=== PATIENT | female | born 1955 | race Caucasian/White ===

== ENCOUNTER 2023-03-31 13:55 | Emergency (ER) | payer MEDICARE, SELFPAY ==
[2023-03-31 14:01] VITALS: BP 143/73
--- NOTE | 2023-03-31 21:45 | ED.MUSCINJ ---
HPI-Injury
General
Chief Complaint: Fall
Source: patient
Exam Limitations: none
Time Seen by Provider: 03/31/23 14:25
Nursing documentation reviewed up to this point in time: agreed with
Travel History
Have you had any contact with someone who has COVID-19?: No
Do you have any symptoms of coronavirus? Fever > 100 degrees, chills, cough, shortness of breath, sore throat, loss of taste or smell, muscle aches, or headache?: No
History of Present Illness-Injury
Is this injury a work related problem?: No
Is pt an associate of [facility]?: No
Initial Injury comments:
Patient to ED after slip and fall incident last weekend. Fell into street. Hit face on pavement. No LOC. Bit her tongue and displaced right upper central incisor. Complains of pain to her right arm, elbow, wrist, thigh. Brought to ED by spouse
for eval.
Past History
Past History
ED Past Medical History: COPD and GERD
ED Past Surgical History: Other
Social History
Tobacco: Former smoker
Personal:
Living: with family
Employment: Retired
Review of Systems
Review of Systems
Allergies reviewed?: Yes
All Other Systems: ROS reviewed and negative except as documented in HPI and ROS
Constitutional: Reports no symptoms
EENT: Reports other (Displaced right upper central incisor, bite to right side of tongue, bruising to chin)
Respiratory: Reports no symptoms
Cardiac: Reports no symptoms
ABD/GI: Reports no symptoms
Musculoskeletal: Reports joint pain (pain to right shoulder, right elbow, right wrist, right thigh)
Skin: Reports no symptoms
Neurological: Reports no symptoms
Psychiatric: Reports no symptoms
Musculoskeletal Injury Exam
Musculoskeletal Injury Exam
Right Upper Arm:
Pain with Movement?: Moderate
Tender to palpation?: Moderate
External deformity and angulation?: None
Joint effusion?: None
Contusion?: Moderate
Hematoma-local bleeding into tissue?: None
Strain- Sprain- Tear (Connective tissue injury)?: Moderate
Crepitus with movement?: No
Joint instability?: No
Malalignment/deformity?: No
Range of motion: Full
Distal skin color and temperature: normal-warm & good color
Capillary Refill: normal
Normal distal neurovascular exam?: Yes
Peripheral Pulses: radial (right): 3+
Right Elbow:
Pain with Movement?: Moderate
Tender to palpation?: Moderate
Soft tissue swelling?: None
External deformity and angulation?: None
Joint effusion?: None
Contusion?: Moderate
Strain- Sprain- Tear (Connective tissue injury)?: Moderate
Crepitus with movement?: No
Joint instability?: No
Malalignment/deformity?: No
Range of motion: Full
Distal skin color and temperature: normal-warm & good color
Capillary Refill: normal
Normal distal neurovascular exam?: Yes
Right Wrist:
Pain with Movement?: Moderate
Tender to palpation?: Moderate
Soft tissue swelling?: None
External deformity and angulation?: None
Joint effusion?: None
Contusion?: None
Hematoma-local bleeding into tissue?: None
Strain- Sprain- Tear (Connective tissue injury)?: Moderate
Crepitus with movement?: No
Joint instability?: No
Malalignment/deformity?: No
Range of motion: Full
Distal skin color and temperature: normal-warm & good color
Capillary Refill: normal
Normal distal neurovascular exam?: Yes
Right Thigh:
Pain with Movement?: Moderate
Tender to palpation?: Moderate
Soft tissue swelling?: None
External deformity and angulation?: None
Joint effusion?: None
Contusion?: Moderate
Hematoma-local bleeding into tissue?: None
Strain- Sprain- Tear (Connective tissue injury)?: None
Crepitus with movement?: No
Joint instability?: No
Malalignment/deformity?: No
Range of motion: Full
Distal skin color and temperature: normal-warm & good color
Capillary Refill: normal
Normal distal neurovascular exam?: Yes
Phy Exam
General Physical Exam
General Presentation: well appearing and no apparent distress
General age: appears stated age
General Skin: warm and dry
General Habitus: normal
General Mental: alert
Neurological Exam
Neurological Exam: alert, oriented x3 and CN II-XII intact
Musculoskeletal Exam
Musculoskeletal Exam: full ROM and neuro vasc intact
Skin Exam
Skin Exam: normal color and warm/dry
Psychiatric Exam
Psychiatric Exam: normal mood/affect
Injury Course
Orders/Labs/Results
Orders:
Orders
03/31/23 15:32
CR Elbow - Right Min 3 Views Urgent
Reason For Exam: fall
CR Femur - Right Min 2 Vw Urgent
Reason For Exam: fall
CR Humerus - Right Min 2 View* Urgent
Reason For Exam: fall
CR Wrist - Right Min 3 Views Urgent
Reason For Exam: fall
03/31/23 16:26
Long Arm Right-Treatment ONCE
03/31/23 16:27
Sling Right-Treatment ONCE
*Radiology
Radiology exam reviewed: radiology read reviewed
*Pulse Oximetry
Patient hypoxic: no
*Critical Care Note
Total Time (30-74mins, 75-104mins- exclusive of procedures): Not Applicable
ED Attending Note
-
Portions of this chart may have been created with voice recognition software.� Occasional wrong word or��sound alike� substitutions may have occurred due to the inherent limitations of voice recognition software.
Discharge Plan
Departure
Patient Disposition: Home (Routine Discharge)
Date of Disposition: 03/31/23
Time of Disposition: 16:15
Patient with high blood pressure during this ER visit?: No
Condition: Good
Covid-19: Not Applicable
Discharge Problem:
Contusion of multiple sites, Head injury
Instructions: Head Injury in Adults (DC), Contusion (DC), Preventing falls in adults, Mouth and dental injuries in adults, Elbow Fracture, Adult ED
Prescriptions:
No Action
trazodone 100 MG tablet
100 mg PO HS
metoprolol tartrate 25 MG tablet
25 mg PO DAILYPRN PRN (Reason: palpitations)
celecoxib 200 MG capsule
200 mg PO DAILY
chlorpromazine 10 MG tablet
10 mg PO DAILYPRN PRN (Reason: hiccups)
ascorbic acid (vitamin C) [Vitamin C] 500 MG tablet
1,000 mg PO DAILY
acyclovir 1 APPLIC ointment
1 applic topical DAILY
Patient Comments:
07/28/18: Patient applies to lips and nose daily
cholecalciferol (vitamin D3) 1,000 UNITS tablet
1,000 units PO DAILY
levocetirizine [Xyzal] 5 MG tablet
5 mg PO DAILY
sennosides [senna] 1 TABLET tablet
1 tab PO HS 0RF
acetaminophen 325 MG tablet
650 mg PO Q4HPRN PRN (Reason: pain-1 st) 0RF
famotidine 20 MG tablet
20 mg PO BID 0RF
docusate sodium 100 MG capsule
100 mg PO BID 0RF
oxycodone 5 MG tablet
5 mg PO Q6HPRN PRN (Reason: pain not controlled on other m) Qty: 40 0RF
Referrals:
Joaquín Ponce DO [Family Provider] -
Daljit Baltazar MD [Active] - Call in 1-3 days for appt
Activity Restrictions/Additional Instructions:
Follow up with your dental provider for further treatment of the injury to your tooth.
Interventions
Interventions:
*Risk Screen - Suicide Last Done: 03/31/23 17:27
*General Assessment Last Done: 03/31/23 17:25
*Neglect/Abuse Screening Last Done: 03/31/23 17:27
*Nursing Disposition Last Done: 03/31/23 17:27
ED-Musculoskeletal Assessment Last Done: 03/31/23 17:22
ED- Neurological Assessment Last Done: 03/31/23 17:22
ED-Skin Assessment Last Done: 03/31/23 17:22
Discharge Date and Time
Discharge Date/Time: 03/31/23 17:28
== END 2023-03-31 17:28 | disposition home or self-care (01) ==
LOC: EMR 13:55
PROVIDERS: EMERGENCY PHYSICIAN Emergency Medicine; FAMILY PHYSICIAN Family Medicine
DX: S09.90XA Unspecified injury of head, initial encounter (principal); S00.83XA Contusion of other part of head, initial encounter; W19.XXXA Unspecified fall, initial encounter
CPT/HCPCS: 99283; 73060; 73080; 73110; 73552

== ENCOUNTER 2023-11-07 14:09 | Emergency (ER) | payer MEDICARE, SELFPAY ==
[2023-11-07] VITALS (7 sets, daily range): BP systolic 140–153; BP diastolic 71–82; BMI 20.9
[2023-11-07] MEDS: ZOFRAN 4 MG IV ×2 (15:04→20:15)
[2023-11-07] MEDS: DILAUDID 1 MG IV ×4 (15:05→21:47)
--- NOTE | 2023-11-07 17:34 | ED.GENMED ---
History of Present Illness
General
Chief Complaint: Fall
Source: patient and spouse
Time Seen by Provider: 11/07/23 14:16
History of Present Illness
History of Present Illness:
68-year-old female who presents after she fell off the bed and struck her left flank on a chair. Patient states she waited 2 days because she was trying to manage at home but is unable to get out of bed to the bathroom. The patient fell to bed
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 She does have a history of COPD. The patient also states she is on chronic pain medication at home but is not helping. She denies shortness of breath but states that just hurts when she takes a deep breath. She
reports pain throughout the left flank. No hematuria noted
Past History
Past History
ED Past Medical History: COPD, GERD and Other (Esophageal stricture, peptic ulcer disease, left carotid artery aneurysm, migraines, cataracts)
ED Past Surgical History: Other
Social History
Tobacco: Former smoker
Personal:
Living: with family
Employment: Retired
Phy Exam
Physical Exam
Physical Exam:
CONSTITUTIONAL Patient alert and oriented to person, place and time. Well-appearing. Vital signs reviewed.
HEAD atraumatic, normocephalic.
EYES eyelids normal to inspection, Extraocular muscles intact, Conjunctiva normal, Sclera normal.
NECK normal range of motion, Trachea midline, no jugular venous distention.
RESPIRATORY CHEST No respiratory distress noted, Bilateral breath sounds clear.
CARDIOVASCULAR regular rate and rhythm, Heart sounds normal.
ABDOMEN abdomen nontender, Bowel sounds normal. No distention.
BACK normal inspection, no obvious deformities, no midline tenderness. Moderate to severe left posterior/flank tenderness in the regions of ribs 6 through 9 laterally
UPPER EXTREMITY range of motion normal, Motor strength normal, no cyanosis, no edema. skin tear to R elbow
LOWER EXTREMITY range of motion normal, Motor strength normal, no cyanosis, no edema.
NEURO Speech normal, No focal motor deficits, [place] coma scale 15, Memory normal, Cranial Nerves intact to screening exam.
SKIN skin warm, dry, and normal in color.
PSYCHIATRIC patient oriented to person place and time, Normal affect.
Course
Orders/Labs/Results
Orders:
Orders
11/07/23 14:59
HYDROmorphone [Dilaudid] 1 mg IV NOW STA
Ondansetron Injectable [Zofran] 4 mg IV NOW STA
Ribs, Left 3 View W/PA Chest CR [CR Ribs-left 3 Vw W/pa Chest] Urgent
Comment:
Reason For Exam: fall
11/07/23 16:26
HYDROmorphone [Dilaudid] 1 mg IV NOW STA
11/07/23 16:28
CT Chest W/o Iv Contrast Urgent
Comment:
Reason For Exam: severe L flank pain, s/p fall
11/07/23 17:45
Complete Blood Count/With Diff Urgent
Comprehensive Metabolic Panel Urgent
11/07/23 18:54
Acetaminophen [Tylenol] 1,000 mg PO NOW STA
HYDROmorphone [Dilaudid] 1 mg IV NOW STA
Abnormal Lab Results
11/07/23
17:45
Absolute Neuts (auto) 7.3 H 10^3/uL
(1.4-6.5)
Lymphocytes % 17.4 L %
(20.5-51.1)
11/07/23 17:45
11/07/23 17:45
Vital Signs
Initial and Last Documented VS:
Initial Vital Signs
Temp Pulse Resp Pulse Ox
98 F 65 18 94
11/07/23 14:14 11/07/23 14:14 11/07/23 14:14 11/07/23 14:14
Last Documented Vital Signs
Temp Pulse Resp BP Pulse Ox
98 F 80 17 151/71 89
11/07/23 14:14 11/07/23 17:30 11/07/23 17:30 11/07/23 17:00 11/07/23 17:15
MDM/Problems Addressed
MDM/Problems Addressed:
Rib injury
*Radiology
Radiology exam reviewed: preliminary read by ED provider (Rib fractures noted on chest CT) and radiology read reviewed
*Pulse Oximetry
Patient hypoxic: no
*Critical Care Note
Total Time (30-74mins, 75-104mins- exclusive of procedures): 45 minutes
Data Reviewed
Source: patient
Patient Management
Escalation/DeEscalation of care consider admission/obs:
Pain is somewhat improved. Not hypoxic. Will attempt to ambulate to see if she is able to be discharged. Await CT reading
Update Note
Update Note:
Patient unable to get out of bed without severe pain. Given the fact that she has multiple rib fractures and is essentially immobile, transfer to trauma center. Will discuss with [facility] trauma
ED Attending Note
-
Portions of this chart may have been created with voice recognition software.� Occasional wrong word or��sound alike� substitutions may have occurred due to the inherent limitations of voice recognition software.
Discharge Plan
Departure
Patient Disposition: Acute Care Hospital
Date of Disposition: 11/07/23
Time of Disposition: 18:45
Discharge Problem:
Fracture of ribs, multiple
Prescriptions:
No Action
trazodone 100 MG tablet
100 mg PO HS
metoprolol tartrate 25 MG tablet
25 mg PO DAILYPRN PRN (Reason: palpitations)
celecoxib 200 MG capsule
200 mg PO DAILY
chlorpromazine 10 MG tablet
10 mg PO DAILYPRN PRN (Reason: hiccups)
ascorbic acid (vitamin C) [Vitamin C] 500 MG tablet
1,000 mg PO DAILY
acyclovir 1 APPLIC ointment
1 applic topical DAILY
Patient Comments:
07/28/18: Patient applies to lips and nose daily
cholecalciferol (vitamin D3) 1,000 UNITS tablet
1,000 units PO DAILY
levocetirizine [Xyzal] 5 MG tablet
5 mg PO DAILY
sennosides [senna] 1 TABLET tablet
1 tab PO HS 0RF
acetaminophen 325 MG tablet
650 mg PO Q4HPRN PRN (Reason: pain-1 st) 0RF
famotidine 20 MG tablet
20 mg PO BID 0RF
docusate sodium 100 MG capsule
100 mg PO BID 0RF
oxycodone 5 MG tablet
5 mg PO Q6HPRN PRN (Reason: pain not controlled on other m) Qty: 40 0RF
Referrals:
Joaquín Ponce DO [Family Provider] -
Hospital Transfer
Other hospital: [facility]
I certify that the patient requires transfer: Yes
Discussed case with accepting physician: trauma
Reason for transfer: specialties available
Interventions
Interventions:
*Risk Screen - Suicide Last Done: 11/07/23 14:22
*General Assessment Last Done: 11/07/23 14:23
*Neglect/Abuse Screening Last Done: 11/07/23 14:23
ED- Fall Risk Assessment Last Done: 11/07/23 14:27
*ED COVID-19 Vaccine History Last Done: 11/07/23 14:27
ED-Musculoskeletal Assessment Last Done: 11/07/23 16:18
ED- Neurological Assessment Last Done: 11/07/23 14:27
ED-Skin Assessment Last Done: 11/07/23 16:18
Discharge Date and Time
Print Language: TAJIK
[2023-11-07 17:53] LABS: % Basophils 0.7 % (0-2); % Eosinophils 0.6 % (0-6); % Immature Granulocytes 0.3 % (0-0.5); % Lymphocytes 17.4 % (20.5-51.1); Absolute Basophils 0.1 10^3/uL (0-0.2); Absolute Eosinophils 0.1 10^3/uL (0-0.7); Absolute Lymphocytes 1.7 10^3/uL (1.2-3.4); Absolute Monocytes 0.6 10^3/uL (0.1-0.6); Absolute Neutrophils 7.3 10^3/uL (1.4-6.5); Hemoglobin 14.5 g/dL (12.0-16.0); Mean Corp Hgb Conc. 34.5 g/dL (33.0-37.0); Mean Corpuscular Hgb 30.3 pg (27.0-31.0); Mean Corpuscular Volume 87.7 fL (81.0-99.0); Mean Platelet Volume 9.4 fL (7.4-10.4); Nucleated Red Blood Cells % 0 %; Platelet Count 252 10^3/uL (130-400); Red Blood Cell Count 4.79 10^6/uL (4.20-5.40); Red Cell Dist. Width 13.2 % (11.5-14.5); White Blood Cell Count 9.7 10^3/uL (4.8-10.8)
[2023-11-07 18:07] LABS: ALT (SGPT) 18 U/L (0-35); AST (SGOT) 28 U/L (14-36); Albumin 4.2 g/dl (3.5-5.0); Alkaline Phosphatase 96 U/L (38-126); Blood Urea Nitrogen 13 mg/dl (7-17); Calcium 9.3 mg/dl (8.4-10.2); Carbon Dioxide 27 mmol/L (22-30); Chloride 101 mmol/L (98-107); Estimated Creatinine Clearance 63 ml/min; Glucose 78 mg/dl (70-99); Potassium 4.1 mmol/L (3.5-5.1); Sodium 139 mmol/L (135-145); Total Bilirubin 0.9 mg/dl (0.2-1.3); eGFR > 60.00
[2023-11-07] MEDS: TYLENOL 1000 MG PO (19:13)
== END 2023-11-07 22:27 | disposition short-term general hospital (02) ==
LOC: EMR 14:09
PROVIDERS: EMERGENCY PHYSICIAN Emergency Medicine; FAMILY PHYSICIAN Family Medicine
DX: S22.42XA Multiple fractures of ribs, left side, initial encounter for closed fracture (principal); W06.XXXA Fall from bed, initial encounter; Z87.891 Personal history of nicotine dependence
CPT/HCPCS: 99291; 96374; 96375; 96376 ×2; 71101; 71250; 80053; 85025

== ENCOUNTER 2024-12-07 06:07 | Emergency (ER) | payer MEDICARE, SELFPAY ==
[2024-12-07 06:11] VITALS: BP 109/84
[2024-12-07 06:26] VITALS: BMI 17.3
--- NOTE | 2024-12-07 06:33 | ED.GENMED ---
History of Present Illness
General
Chief Complaint: Fall
Time Seen by Provider: 12/07/24 06:11
History of Present Illness
History of Present Illness:
69 yo female presents to the Emergency Department for evaluation of headache and R shoulder pain after falling out of bed this AM. Per , she had a witnessed LOC lasting seconds to minutes. She reports mild h/a, nausea, and fatigue currently.
Takes baby asa, no OAC. No neck/back pain, extremity paresthesias. Able to ambulate after the injury
Past History
Past History
ED Past Medical History: COPD, GERD and Other (Esophageal stricture, peptic ulcer disease, left carotid artery aneurysm, migraines, cataracts)
ED Past Surgical History: Other
Social History
Tobacco: Former smoker
Personal:
Living: with family
Employment: Retired
Review of Systems
Review of Systems
Allergies reviewed?: Yes
All Other Systems: ROS reviewed and negative except as documented in HPI and ROS
Phy Exam
Physical Exam
Physical Exam:
GEN: Well appearing, NAD, WDWN
HEENT: Minor laceration to the right lateral eyebrow with ecchymosis, no palpable deformity, oral mucosa moist, no scleral icterus, no nasal congestion
Cardiac: Regular rate
Lung: No respiratory distress, no tachypnea
MSK: No gross deformity or injuries, no midline cervical, thoracic, lumbar spine tenderness. Right shoulder appears atraumatic with no ecchymosis or deformity, range of motion normal, grossly nontender
Skin: Good color, no pallor or jaundice, no rashes
Neuro: AO x3; CN II-XII grossly intact. BUE strength 5/5 in all gimenez, sensation intact and symmetric. BLE strength 5/5 in all gimenez, sensation intact and symmetric
Psych: Calm, cooperative
Course
Orders/Labs/Results
Orders:
Orders
12/07/24 06:32
CT Head W/o Iv Contrast Urgent
Comment:
Reason For Exam: fall
CR Shoulder - Right Min 2 View Urgent
Comment:
Reason For Exam: fall
Vital Signs
Initial and Last Documented VS:
Initial Vital Signs
Temp Pulse Resp BP Pulse Ox
97.5 F 83 18 109/84 95
12/07/24 06:11 12/07/24 06:11 12/07/24 06:11 12/07/24 06:11 12/07/24 06:11
Last Documented Vital Signs
Temp Pulse Resp BP Pulse Ox
97.5 F 77 14 109/84 94
12/07/24 06:11 12/07/24 06:35 12/07/24 06:35 12/07/24 06:11 12/07/24 06:35
MDM/Problems Addressed
MDM/Problems Addressed:
No evidence of traumatic injury on CT of the head or x-ray of the right shoulder. Suitable for discharge home
*Pulse Oximetry
SaO2: 95
Oxygen Mode of Delivery: Room air
Patient hypoxic: no
*Critical Care Note
Total Time (30-74mins, 75-104mins- exclusive of procedures): Not Applicable
ED Attending Note
-
Portions of this chart may have been created with voice recognition software.� Occasional wrong word or��sound alike� substitutions may have occurred due to the inherent limitations of voice recognition software.
Discharge Plan
Departure
Patient Disposition: Home (Routine Discharge)
Date of Disposition: 12/07/24
Time of Disposition: 07:37
Patient with high blood pressure during this ER visit?: No
Discharge Problem:
Fall, Laceration of eyebrow, Closed head injury
Prescriptions:
No Action
trazodone 100 MG tablet
100 mg PO HS
metoprolol tartrate 25 MG tablet
25 mg PO DAILYPRN PRN (Reason: palpitations)
celecoxib 200 MG capsule
200 mg PO DAILY
chlorpromazine 10 MG tablet
10 mg PO DAILYPRN PRN (Reason: hiccups)
ascorbic acid (vitamin C) [Vitamin C] 500 MG tablet
1,000 mg PO DAILY
acyclovir 1 APPLIC ointment
1 applic topical DAILY
Patient Comments:
07/28/18: Patient applies to lips and nose daily
cholecalciferol (vitamin D3) 1,000 UNITS tablet
1,000 units PO DAILY
levocetirizine [Xyzal] 5 MG tablet
5 mg PO DAILY
sennosides [senna] 1 TABLET tablet
1 tab PO HS 0RF
acetaminophen 325 MG tablet
650 mg PO Q4HPRN PRN (Reason: pain-1 st) 0RF
famotidine 20 MG tablet
20 mg PO BID 0RF
docusate sodium 100 MG capsule
100 mg PO BID 0RF
oxycodone 5 MG tablet
5 mg PO Q6HPRN PRN (Reason: pain not controlled on other m) Qty: 40 0RF
Referrals:
CARLEY ANDRADE [Other]
Interventions
Interventions:
*Risk Screen - Suicide Last Done: 12/07/24 06:11
*General Assessment Last Done: 12/07/24 06:27
*Neglect/Abuse Screening Last Done: 12/07/24 06:27
*ED- Fall Risk Assessment Last Done: 12/07/24 06:27
*ED COVID-19 Vaccine History Last Done: 12/07/24 06:27
*ED Influenza Vaccine History Last Done: 12/07/24 06:27
*Nursing Disposition Last Done: 12/07/24 07:38
ED-Musculoskeletal Assessment Last Done: 12/07/24 06:30
ED- Neurological Assessment Last Done: 12/07/24 06:30
ED-Skin Assessment Last Done: 12/07/24 06:30
Discharge Date and Time
Discharge Date/Time: 12/07/24 07:38
Print Language: MOZAMBICAN
== END 2024-12-07 07:38 | disposition home or self-care (01) ==
LOC: EMR 06:07
PROVIDERS: EMERGENCY PHYSICIAN Emergency Medicine
DX: S01.111A Laceration without foreign body of right eyelid and periocular area, initial encounter (principal); S09.90XA Unspecified injury of head, initial encounter; W06.XXXA Fall from bed, initial encounter; Y92.003 Bedroom of unspecified non-institutional (private) residence as the place of occurrence of the external cause; I72.0 Aneurysm of carotid artery; J44.9 Chronic obstructive pulmonary disease, unspecified; K21.9 Gastro-esophageal reflux disease without esophagitis; Z79.82 Long term (current) use of aspirin; Z87.891 Personal history of nicotine dependence
CPT/HCPCS: 99284; 70450; 73030

== ENCOUNTER 2025-01-09 06:08 | Day surgery (SDC) | payer MEDICARE, SELFPAY ==
[2025-01-09] VITALS (9 sets, daily range): BP systolic 101–133; BP diastolic 62–79; BMI 20.1
== END 2025-01-09 17:14 | disposition home or self-care (01) ==
LOC: SDS 06:08
PROVIDERS: ATTENDING PHYSICIAN Internal Medicine Gastroenterology
DX: R93.5 Abnormal findings on diagnostic imaging of other abdominal regions, including retroperitoneum (principal); K83.8 Other specified diseases of biliary tract
CPT/HCPCS: 43237